=== PATIENT | female | born 1935 | race Caucasian/White ===

== ENCOUNTER 2016-05-28 00:33 | Emergency (ER) | payer MEDICARE, MEDICAID ==
[~2016-05-28] VITALS: Ht 157.5 cm; Wt 54.5 kg
[~2016-05-28 00:33] MED LIST: ASPIRIN 32325 MG/TAB PO; ATENOLOL50 MG PO; OMEPRAZOLE20 MG PO; TRICOR145 MG PO
[2016-05-28] MEDS ORDERED: MOBIC 7.5MG7.5 MG PO (00:44)
[2016-05-28] MEDS ORDERED: HCTZ 25MG TAB25 MG PO (00:44)
[2016-05-28] MEDS ORDERED: TENORMIN100 MG PO (00:45)
[2016-05-28 02:36] LABS: BASO % 0.3 % (0.0-2.0); EOS % 0.2 % (0-4.0); GRAN % 72.9 % (42.2-75.2); HEMATOCRIT 39.8 % (37.0-47.0); HEMOGLOBIN 13.3 g/dl (12.5-16.0); LYMPH # 1.8 (1.2-3.4); LYMPH % 16.2 % (20.0-51.0); MEAN CELL VOLUME 91 fl (80.0-100.0); MEAN CORPUSCULAR HEMOGLOBIN 31 pg (27.0-31.0); MEAN CORPUSCULAR HGB CONC 33 g/dl (33.0-37.0); MEAN PLATELET VOLUME 10.2 fl (7.4-10.4); MONO # 1.1 (0.1-0.6); MONO % 9.9 % (1.7-9.3); PLATELET COUNT 271 K/mm3 (130-400); RED BLOOD COUNT 4.36 M/mm3 (4.10-5.30); REDCELL DISTRIBUTION WIDTH-CV 12.8 % (11.5-14.5)
[2016-05-28 02:48] LABS: ALBUMIN 4.4 gm/dL (3.5-5.0); BILIRUBIN,TOTAL 0.7 mg/dL (0.0-1.0); CALCIUM 10.3 mg/dL (8.4-10.2); CREATININE, serum 0.82 mg/dL (0.52-1.25); PHOSPHOROUS 3.3 mg/dL (2.5-4.5); POTASSIUM 4.4 mmol/L (3.4-5.0); TOTAL PROTEIN 7.8 gm/dL (6.4-8.2)
[2016-05-28 02:59] LABS: TROPONIN-I 0.013 ng/mL (0.000-0.034)
[2016-05-28 03:10] LABS: MAGNESIUM 2.3 mg/dL (1.6-2.3)
[2016-05-28] MEDS ORDERED: LEVAQUIN 5500 MG/TA1 PO (05:23)
[2016-05-28 05:31] VITALS: BP 155/76; PULSE 60; TEMP 98.7
== END 2016-05-28 05:37 | disposition home or self-care (01) ==
LOC: COL.ER 00:33
PROVIDERS: Emergency Medicine
DX: H66.92 Otitis media, unspecified, left ear (principal); I10 Essential (primary) hypertension; R51 Headache; I44.7 Left bundle-branch block, unspecified; Z88.0 Allergy status to penicillin

== ENCOUNTER → 2016-10-25 | Outpatient (CLI) | payer MEDICARE, MEDICAID ==
[~2016-10-25] MED LIST changes: +HCTZ 25MG TAB25 MG PO; +LEVAQUIN 5500 MG/TA1 PO; +MOBIC 7.5MG7.5 MG PO; +TENORMIN100 MG PO
== END ==
LOC: MC.RAD 09:50
DX: Z12.31 Encounter for screening mammogram for malignant neoplasm of breast (principal)

== ENCOUNTER 2017-01-31 13:36 | Outpatient (RCR) | payer MEDICARE, MEDICAID | END 2017-05-01 | disposition still patient (30) | LOC: WSST | DX: R13.10 Dysphagia, unspecified (principal) | CPT/HCPCS: G8996-GN; G8997-GN ==

== ENCOUNTER → 2017-02-02 | Outpatient (CLI) | payer MEDICARE, MEDICAID | LOC: COL.RAD 14:49 | DX: R13.10 Dysphagia, unspecified (principal) | CPT/HCPCS: G8996-GN; G8997-GN; G8998-GN ==